=== PATIENT | male | born 1975 | race Two or more races ===

== ENCOUNTER 2021-04-08 08:32 | Emergency (ER) | payer OTHER ==
[~2021-04-08] VITALS: Ht 182.9 cm; Wt 108.9 kg
[2021-04-08 08:58] VITALS: BP 131/77
[2021-04-08] MEDS ORDERED: cefTRIAXone SOD 1,000 MG VL IM ONE (09:15)
[2021-04-08] MEDS ORDERED: KETOROLAC TROMETH 60MG/2ML VIAL IM ONE (09:15)
== END 2021-04-08 09:34 | disposition home or self-care (01) ==
LOC: ER 08:32
DX: S50.862A Insect bite (nonvenomous) of left forearm, initial encounter (principal); S50.861A Insect bite (nonvenomous) of right forearm, initial encounter; S80.862A Insect bite (nonvenomous), left lower leg, initial encounter; S80.861A Insect bite (nonvenomous), right lower leg, initial encounter; F41.1 Generalized anxiety disorder; F17.210 Nicotine dependence, cigarettes, uncomplicated; W57.XXXA Bitten or stung by nonvenomous insect and other nonvenomous arthropods, initial encounter; Y93.89 Activity, other specified; Y92.89 Other specified places as the place of occurrence of the external cause; Y99.8 Other external cause status
CPT/HCPCS: 96372; 99284; J0696; J1885

== ENCOUNTER 2021-04-09 10:53 | Emergency (ER) | payer OTHER ==
[~2021-04-09] VITALS: Ht 185.4 cm; Wt 136.1 kg
[2021-04-09 11:41] LABS: Basophils # (auto) 0.1 10 ^3/uL (0-0.2); Basophils % (auto) 0.8 % (0.0-2.0); Eosinophils # (auto) 0.2 10 ^3/uL (0-0.8); Hematocrit 40.3 % (41.0-53.0); Hemoglobin 13.4 g/dL (13.5-17.5); Lymphocytes # (auto) 1.7 10 ^3/uL (0.4-5.4); Lymphocytes % (auto) 16.8 % (10.0-50.0); Mean Corpuscular Hemoglobin 28.7 pg (28.0-32.0); Mean Corpuscular Hgb Conc. 33.2 g/dL (32.0-36.0); Mean Corpuscular Volume 86.5 fL (80.0-100.0); Monocytes # (auto) 0.5 10 ^3/uL (0-1.3); Monocytes % (auto) 5.4 % (0.0-12.0); Neutrophils # (auto) 7.6 10 ^3/uL (1.6-8.6); Nucleated Red Blood Cells % 0.1 %; Red Blood Cells 4.66 10^6/uL (4.5-5.90); Red Cell Distribution Width 15.5 % (11.8-14.3); White Blood Cell 10.2 10^3/uL (4.4-10.8)
[2021-04-09 11:55] LABS: Albumin 2.8 g/dL (3.4-5.0); Calcium 8.3 mg/dL (8.5-10.1); Magnesium 2.5 mg/dL (1.6-2.6)
[2021-04-09 11:59] LABS: BUN/Creatinine Ratio 13.9; Bilirubin, Total 0.4 mg/dL (0.2-1.0); Total Protein 7.8 g/dL (6.4-8.2)
[2021-04-09] MEDS ORDERED: TETANUS-DIPTH-ACEL PERTUSSIS 0.5ML SYR Tdap IM ONE (12:00)
[2021-04-09] MEDS ORDERED: cefTRIAXone 1GM/50ML D5W 50 ML IV ONE (12:30)
[2021-04-09] MEDS ORDERED: SODIUM CHLORIDE 0.9% 1,000 ML IV ONE (13:00)
[2021-04-09 14:08] LABS: Urine Bacteria FEW /hpf (None Seen); Urine Blood Negative /uL (Negative); Urine Specific Gravity 1.009 (1.001-1.035); Urine WBC 25 /hpf (0 - 3)
[2021-04-09 14:28] LABS: Alcohol, Urine < 3.0 mg/dL (0-10); Amphetamine Screen, Urine POSITIVE (NEGATIVE); Barbiturate Scree,Urine NEGATIVE (NEGATIVE); Benzodiazephine Screen, Urine NEGATIVE (NEGATIVE); Cocaine Screen, Urine NEGATIVE (NEGATIVE); Opiate Scree,Urine NEGATIVE (NEGATIVE); Phencyclidine Screen, Urine NEGATIVE (NEGATIVE)
[2021-04-09 14:32] LABS: Cannabinoid Screen, Urine NEGATIVE (NEGATIVE)
[2021-04-09 15:40] VITALS: BP 141/87
== END 2021-04-09 16:08 | disposition home or self-care (01) ==
LOC: ER 10:53
DX: S81.802A Unspecified open wound, left lower leg, initial encounter (principal); N18.31 Chronic kidney disease, stage 3a; F15.10 Other stimulant abuse, uncomplicated; F17.210 Nicotine dependence, cigarettes, uncomplicated; E44.0 Moderate protein-calorie malnutrition; Z68.39 Body mass index [BMI] 39.0-39.9, adult; Z59.0 Homelessness; X58.XXXA Exposure to other specified factors, initial encounter; Y93.89 Activity, other specified; Y92.89 Other specified places as the place of occurrence of the external cause; Y99.8 Other external cause status
CPT/HCPCS: 36415; 71045; 80053; 80307; 81001; 83735; 85025; 87205; 90471; 90715; 93005; 96365; 99285; J0696; J7030; 87077

== ENCOUNTER 2021-06-15 10:52 | Emergency (ER) | payer OTHER ==
[~2021-06-15] VITALS: Ht 175.3 cm; Wt 117.9 kg
[2021-06-15 12:15] VITALS: BP 145/79
[2021-06-15] MEDS ORDERED: SODIUM CHLORIDE 0.9% 1,000 ML IV ONE (12:15)
[2021-06-15 12:40] LABS: Urine Bacteria NONE SEEN /hpf (None Seen); Urine Blood Negative /uL (Negative); Urine Mucus FEW (None Seen); Urine Specific Gravity 1.033 (1.001-1.035); Urine WBC 3 /hpf (0 - 3)
[2021-06-15 12:58] LABS: Alcohol, Urine < 3.0 mg/dL (0-10); Amphetamine Screen, Urine POSITIVE (NEGATIVE); Barbiturate Scree,Urine NEGATIVE (NEGATIVE); Benzodiazephine Screen, Urine NEGATIVE (NEGATIVE); Cannabinoid Screen, Urine POSITIVE (NEGATIVE); Cocaine Screen, Urine NEGATIVE (NEGATIVE); Opiate Scree,Urine NEGATIVE (NEGATIVE); Phencyclidine Screen, Urine NEGATIVE (NEGATIVE)
[2021-06-15 13:14] LABS: Basophils # (auto) 0 10 ^3/uL (0-0.2); Basophils % (auto) 0.3 % (0.0-2.0); Eosinophils # (auto) 0.1 10 ^3/uL (0-0.8); Eosinophils % (auto) 1.4 % (0.0-7.0); Hematocrit 36.8 % (41.0-53.0); Hemoglobin 12.3 g/dL (13.5-17.5); Lymphocytes # (auto) 1.4 10 ^3/uL (0.4-5.4); Lymphocytes % (auto) 14.7 % (10.0-50.0); Mean Corpuscular Hemoglobin 29.5 pg (28.0-32.0); Mean Corpuscular Hgb Conc. 33.6 g/dL (32.0-36.0); Mean Corpuscular Volume 87.8 fL (80.0-100.0); Monocytes # (auto) 0.5 10 ^3/uL (0-1.3); Monocytes % (auto) 5.7 % (0.0-12.0); Neutrophils # (auto) 7.4 10 ^3/uL (1.6-8.6); Neutrophils % (auto) 77.9 % (37.0-80.0); Nucleated Red Blood Cells % 0.1 %; Red Blood Cells 4.19 10^6/uL (4.5-5.90); Red Cell Distribution Width 14.9 % (11.8-14.3); White Blood Cell 9.5 10^3/uL (4.4-10.8)
[2021-06-15 13:30] LABS: Anion Gap 9 (5-15); BUN/Creatinine Ratio 18.8; Blood Alcohol < 3.0 mg/dL (0-5); Blood Urea Nitrogen 24 mg/dL (7-18); Calcium 8.5 mg/dL (8.5-10.1); Carbon Dioxide 23 mmol/L (21-32); Chloride 108 mmol/L (98-107); GFR African American 78 mL/min; GFR Non-African American 64 mL/min; Glucose 76 mg/dL (74-106); Magnesium 2.7 mg/dL (1.6-2.6); Potassium 3.3 mmol/L (3.5-5.1); Sodium 140 mmol/L (136-145)
[2021-06-15] MEDS ORDERED: DOXYCYCLINE 100 MG TAB/CAP PO ONE (14:15)
== END 2021-06-15 15:37 | disposition home or self-care (01) ==
LOC: ER 10:52 → EDBD 10:52 → ER 15:37
DX: F15.10 Other stimulant abuse, uncomplicated (principal); R21 Rash and other nonspecific skin eruption; K62.89 Other specified diseases of anus and rectum; Z59.0 Homelessness
CPT/HCPCS: 36415; 80048; 80307; 80320; 81001; 83605; 83735; 85025

== ENCOUNTER 2021-06-16 17:08 | Inpatient (IN) | payer OTHER ==
[~2021-06-16] VITALS: Ht 182.9 cm; Wt 109.4 kg
[2021-06-16 17:46] LABS: Basophils # (auto) 0 10 ^3/uL (0-0.2); Basophils % (auto) 0.3 % (0.0-2.0); Eosinophils # (auto) 0 10 ^3/uL (0-0.8); Eosinophils % (auto) 0.1 % (0.0-7.0); Hematocrit 32.2 % (41.0-53.0); Hemoglobin 10.7 g/dL (13.5-17.5); Lymphocytes # (auto) 0.8 10 ^3/uL (0.4-5.4); Lymphocytes % (auto) 7.9 % (10.0-50.0); Mean Corpuscular Hemoglobin 28.7 pg (28.0-32.0); Mean Corpuscular Hgb Conc. 33.2 g/dL (32.0-36.0); Mean Corpuscular Volume 86.5 fL (80.0-100.0); Monocytes # (auto) 0.5 10 ^3/uL (0-1.3); Monocytes % (auto) 5.4 % (0.0-12.0); Neutrophils # (auto) 8.2 10 ^3/uL (1.6-8.6); Neutrophils % (auto) 86.3 % (37.0-80.0); Red Blood Cells 3.72 10^6/uL (4.5-5.90); Red Cell Distribution Width 14.9 % (11.8-14.3); White Blood Cell 9.5 10^3/uL (4.4-10.8)
[2021-06-16 17:53] LABS: Albumin 2.4 g/dL (3.4-5.0); Anion Gap 7 (5-15); Blood Alcohol < 3.0 mg/dL (0-5); Blood Urea Nitrogen 24 mg/dL (7-18); Carbon Dioxide 22 mmol/L (21-32); Chloride 115 mmol/L (98-107); Glucose 114 mg/dL (74-106); Potassium 3.7 mmol/L (3.5-5.1); Sodium 144 mmol/L (136-145)
[2021-06-16 17:57] LABS: Alanine Aminotransferase 20 U/L (16-61); Alkaline Phosphatase 63 U/L (45-117); Aspartate Aminotransferase 16 U/L (15-37); BUN/Creatinine Ratio 20.2; Bilirubin, Total 0.4 mg/dL (0.2-1.0); GFR African American 85 mL/min; GFR Non-African American 70 mL/min
[2021-06-17] MEDS ORDERED: MORPHINE SULFATE INJECTION 2 MG/ML SYRG IV PRN
[2021-06-17] MEDS ORDERED: hydrALAZINE HCL 20 MG/ML VL IV PRN
[2021-06-17] MEDS ORDERED: MORPHINE SULFATE 4 MG/ML SYR/VIAL IV PRN
[2021-06-17] MEDS ORDERED: ONDANSETRON HCL 4 MG/2 ML VIAL IV PRN
[2021-06-17] MEDS ORDERED: NITROGLYCERIN 0.4 MG SL TAB SL PRN
[2021-06-17] MEDS ORDERED: DOCUSATE SOD 100 MG CAP PO PRN
[2021-06-17] MEDS ORDERED: SOD CHL 0.45% 1,000 ML IV ONE
[2021-06-17 05:45] VITALS: BP 150/82
[2021-06-17 06:27] LABS: Basophils # (auto) 0.1 10 ^3/uL (0-0.2); Basophils % (auto) 0.9 % (0.0-2.0); Eosinophils # (auto) 0.2 10 ^3/uL (0-0.8); Eosinophils % (auto) 2.3 % (0.0-7.0); Hematocrit 37.3 % (41.0-53.0); Hemoglobin 12.4 g/dL (13.5-17.5); Lymphocytes # (auto) 0.7 10 ^3/uL (0.4-5.4); Mean Corpuscular Hemoglobin 30.4 pg (28.0-32.0); Mean Corpuscular Hgb Conc. 33.3 g/dL (32.0-36.0); Mean Corpuscular Volume 91.3 fL (80.0-100.0); Monocytes # (auto) 0.6 10 ^3/uL (0-1.3); Monocytes % (auto) 6.3 % (0.0-12.0); Neutrophils # (auto) 7.5 10 ^3/uL (1.6-8.6); Neutrophils % (auto) 82.5 % (37.0-80.0); Nucleated Red Blood Cells % 0.2 %; Red Blood Cells 4.09 10^6/uL (4.5-5.90); Red Cell Distribution Width 15.5 % (11.8-14.3); White Blood Cell 9.1 10^3/uL (4.4-10.8)
[2021-06-17 07:55] LABS: Albumin 2.2 g/dL (3.4-5.0); Anion Gap 8 (5-15); Blood Urea Nitrogen 22 mg/dL (7-18); Carbon Dioxide 18 mmol/L (21-32); Chloride 115 mmol/L (98-107); Glucose 90 mg/dL (74-106); Sodium 141 mmol/L (136-145)
[2021-06-17 08:00] LABS: Alanine Aminotransferase 26 U/L (16-61); Alkaline Phosphatase 72 U/L (45-117); Aspartate Aminotransferase 89 U/L (15-37); BUN/Creatinine Ratio 23.4; Bilirubin, Total 0.6 mg/dL (0.2-1.0); GFR African American 111 mL/min; GFR Non-African American 92 mL/min; Total Protein 6.8 g/dL (6.4-8.2)
[2021-06-17 08:57] LABS: Potassium 5.6 mmol/L (3.5-5.1)
[2021-06-17] MEDS: MULTIPLE VITAMIN TAB PO SCH (10:00)
[2021-06-17] MEDS ORDERED: ASCORBIC ACID 500 MG TAB PO SCH (10:00)
[2021-06-17] MEDS ORDERED: ZINC SULFATE 220mg CAP or TAB PO SCH (10:00)
[2021-06-17] MEDS: FAMOTIDINE (10MG/ML) 2ML VL IV SCH ×2 (10:42→22:04)
[2021-06-17 10:45] VITALS: BP 150/78
[2021-06-17] MEDS ORDERED: LORazepam 2MG/ML-1ML VIAL IV ONE (12:00)
[2021-06-17 13:00] VITALS: BP 176/91
[2021-06-17] MEDS: SODIUM CHLORIDE 0.9% 1,000 ML IV SCH ×2 (13:50→18:25)
[2021-06-17] MEDS: FOLIC ACID 1 MG, MULTIPLE VITAMIN 10 ML, THIAMINE INJ 100 MG in D5W 5% 1,000 ML INJ SCH (13:54)
[2021-06-17] MEDS: HYDROcodone-ACET 5/325MG TAB PO PRN ×2 (14:18→20:58)
[2021-06-17 14:50] LABS: Alcohol, Urine < 3.0 mg/dL (0-10); Amphetamine Screen, Urine POSITIVE (NEGATIVE); Barbiturate Scree,Urine NEGATIVE (NEGATIVE); Benzodiazephine Screen, Urine NEGATIVE (NEGATIVE); Cocaine Screen, Urine NEGATIVE (NEGATIVE); Phencyclidine Screen, Urine NEGATIVE (NEGATIVE)
[2021-06-17 14:58] LABS: Cannabinoid Screen, Urine POSITIVE (NEGATIVE); Opiate Scree,Urine NEGATIVE (NEGATIVE)
[2021-06-17 17:00] VITALS: BP 139/85
[2021-06-17 22:17] VITALS: BP 164/93
[2021-06-18] MEDS: SODIUM CHLORIDE 0.9% 1,000 ML IV SCH ×2 (01:05→07:45)
[2021-06-18 05:37] VITALS: BP 175/70
[2021-06-18 07:51] LABS: Calcium 7.9 mg/dL (8.5-10.1); Magnesium 2.1 mg/dL (1.6-2.6); Potassium 3.7 mmol/L (3.5-5.1)
[2021-06-18 07:53] LABS: BUN/Creatinine Ratio 25.3
[2021-06-18 10:32] VITALS: BP 149/74
[2021-06-18] MEDS: HYDROcodone-ACET 5/325MG TAB PO PRN (10:33)
[2021-06-18] MEDS: MULTIPLE VITAMIN TAB PO SCH (10:33)
[2021-06-18] MEDS: FAMOTIDINE (10MG/ML) 2ML VL IV SCH (10:33)
[2021-06-18] MEDS: FOLIC ACID 1 MG, MULTIPLE VITAMIN 10 ML, THIAMINE INJ 100 MG in D5W 5% 1,000 ML INJ SCH (12:00)
[2021-06-18 13:28] VITALS: BP 149/74
== END 2021-06-18 14:44 | disposition home or self-care (01) | DRG 812 ==
LOC: EDUNIT# 17:08 → EDBD 17:08 → ER 17:10 → OVERFLOW 23:59 → WEST WING 06-17 05:42
PROVIDERS: ADMIT Nurse Practitioner Family; ATTEND Family Medicine
DX: T43.621A Poisoning by amphetamines, accidental (unintentional), initial encounter (principal); G92 Toxic encephalopathy; E88.09 Other disorders of plasma-protein metabolism, not elsewhere classified; F15.10 Other stimulant abuse, uncomplicated; E66.01 Morbid (severe) obesity due to excess calories; E87.5 Hyperkalemia; Z20.822 Contact with and (suspected) exposure to COVID-19; F12.10 Cannabis abuse, uncomplicated; Z59.0 Homelessness; Z68.32 Body mass index [BMI] 32.0-32.9, adult
CPT/HCPCS: 36415; 70450; 80048; 80053; 80307; 80320; 83735; 85025; 87426; 93005; 96360; 99291; G0378; J3490

== ENCOUNTER 2021-06-23 11:11 | Inpatient (IN) | payer OTHER ==
[~2021-06-23] VITALS: Ht 177.8 cm; Wt 113.0 kg
[2021-06-23 11:49] LABS: Basophils # (auto) 0 10 ^3/uL (0-0.2); Basophils % (auto) 0.3 % (0.0-2.0); Eosinophils # (auto) 0.1 10 ^3/uL (0-0.8); Eosinophils % (auto) 0.6 % (0.0-7.0); Hematocrit 36.1 % (41.0-53.0); Lymphocytes # (auto) 0.8 10 ^3/uL (0.4-5.4); Lymphocytes % (auto) 8.3 % (10.0-50.0); Mean Corpuscular Hemoglobin 28.6 pg (28.0-32.0); Mean Corpuscular Hgb Conc. 33.3 g/dL (32.0-36.0); Monocytes # (auto) 0.6 10 ^3/uL (0-1.3); Monocytes % (auto) 5.8 % (0.0-12.0); Neutrophils # (auto) 8.1 10 ^3/uL (1.6-8.6); Red Cell Distribution Width 15.2 % (11.8-14.3); White Blood Cell 9.6 10^3/uL (4.4-10.8)
[2021-06-23 12:02] LABS: Albumin 1.8 g/dL (3.4-5.0); Calcium 8.6 mg/dL (8.5-10.1); Potassium 3.5 mmol/L (3.5-5.1)
[2021-06-23 12:09] LABS: BUN/Creatinine Ratio 21.3; Total Protein 6.7 g/dL (6.4-8.2)
[2021-06-23] MEDS ORDERED: ONDANSETRON HCL 4 MG/2 ML VIAL IV ONE (13:30)
[2021-06-23] MEDS ORDERED: MORPHINE SULFATE 4 MG/ML SYR/VIAL IV ONE (13:30)
[2021-06-23] MEDS ORDERED: ONDANSETRON HCL 4 MG/2 ML VIAL IV PRN (15:15)
[2021-06-23] MEDS ORDERED: hydrALAZINE HCL 20 MG/ML VL IV PRN (15:15)
[2021-06-23] MEDS ORDERED: TETANUS-DIPTH-ACEL PERTUSSIS 0.5ML SYR Tdap IM ONE (15:15)
[2021-06-23] MEDS ORDERED: SODIUM CHLORIDE 0.9% 1,000 ML IV ONE (15:15)
[2021-06-23] MEDS ORDERED: DOCUSATE CALCIUM 240 MG CAP PO PRN (15:15)
[2021-06-23] MEDS ORDERED: VANCOMYCIN PER PHARMACY 0 MG IV SCH (15:30)
[2021-06-23] MEDS: VANCOMYCIN 750mg/250ml 250 ML IV SCH (17:18)
[2021-06-23] MEDS: MORPHINE SULFATE 4 MG/ML SYR/VIAL IV PRN (20:31)
[2021-06-23 22:00] VITALS: BP 127/70
[2021-06-23] MEDS: PIPERACILLIN-TAZO 4.5GM 100 ML IV SCH (22:16)
[2021-06-23 22:53] LABS: Urine Bacteria NONE SEEN /hpf (None Seen); Urine Blood TRACE /uL (Negative); Urine Specific Gravity 1.017 (1.001-1.035); Urine WBC 3 /hpf (0 - 3)
[2021-06-23 23:08] LABS: Alcohol, Urine < 3.0 mg/dL (0-10); Amphetamine Screen, Urine NEGATIVE (NEGATIVE); Barbiturate Scree,Urine NEGATIVE (NEGATIVE); Benzodiazephine Screen, Urine NEGATIVE (NEGATIVE); Cannabinoid Screen, Urine NEGATIVE (NEGATIVE); Cocaine Screen, Urine NEGATIVE (NEGATIVE); Opiate Scree,Urine POSITIVE (NEGATIVE); Phencyclidine Screen, Urine NEGATIVE (NEGATIVE)
[2021-06-24] VITALS (7 sets, daily range): BP systolic 109–137; BP diastolic 57–75
[2021-06-24 06:09] LABS: Basophils # (auto) 0 10 ^3/uL (0-0.2); Basophils % (auto) 0.2 % (0.0-2.0); Eosinophils # (auto) 0.1 10 ^3/uL (0-0.8); Eosinophils % (auto) 1.4 % (0.0-7.0); Hematocrit 33.3 % (41.0-53.0); Hemoglobin 11.2 g/dL (13.5-17.5); Lymphocytes # (auto) 1.1 10 ^3/uL (0.4-5.4); Lymphocytes % (auto) 10.8 % (10.0-50.0); Mean Corpuscular Hemoglobin 28.8 pg (28.0-32.0); Mean Corpuscular Hgb Conc. 33.6 g/dL (32.0-36.0); Mean Corpuscular Volume 85.9 fL (80.0-100.0); Monocytes # (auto) 0.8 10 ^3/uL (0-1.3); Monocytes % (auto) 7.5 % (0.0-12.0); Neutrophils # (auto) 8.2 10 ^3/uL (1.6-8.6); Neutrophils % (auto) 80.1 % (37.0-80.0); Red Blood Cells 3.88 10^6/uL (4.5-5.90); White Blood Cell 10.3 10^3/uL (4.4-10.8)
[2021-06-24] MEDS: PIPERACILLIN-TAZO 4.5GM 100 ML IV SCH ×3 (06:22→22:55)
[2021-06-24] MEDS: MORPHINE SULFATE 4 MG/ML SYR/VIAL IV PRN ×5 (06:23→23:56)
[2021-06-24] MEDS: PANTOPRAZOLE 40 MG TAB PO SCH (09:30)
[2021-06-24] MEDS: ENOXAPARIN SOD 40 MG/0.4 ML SYRINGE SC SCH (09:30)
[2021-06-24] MEDS: VANCOMYCIN 750mg/250ml 250 ML IV SCH (19:42)
[2021-06-25] MEDS: MORPHINE SULFATE 4 MG/ML SYR/VIAL IV PRN ×5 (03:13→22:32)
[2021-06-25 04:50] LABS: Basophils # (auto) 0 10 ^3/uL (0-0.2); Basophils % (auto) 0.4 % (0.0-2.0); Eosinophils # (auto) 0.4 10 ^3/uL (0-0.8); Eosinophils % (auto) 5.3 % (0.0-7.0); Hemoglobin 10.7 g/dL (13.5-17.5); Lymphocytes # (auto) 1.2 10 ^3/uL (0.4-5.4); Mean Corpuscular Hemoglobin 29.4 pg (28.0-32.0); Mean Corpuscular Hgb Conc. 34.7 g/dL (32.0-36.0); Mean Corpuscular Volume 84.7 fL (80.0-100.0); Monocytes # (auto) 0.5 10 ^3/uL (0-1.3); Monocytes % (auto) 6.5 % (0.0-12.0); Neutrophils # (auto) 5.8 10 ^3/uL (1.6-8.6); Neutrophils % (auto) 72.8 % (37.0-80.0); Red Blood Cells 3.66 10^6/uL (4.5-5.90); Red Cell Distribution Width 15.1 % (11.8-14.3)
[2021-06-25 05:21] VITALS: BP 118/56
[2021-06-25] MEDS: PIPERACILLIN-TAZO 4.5GM 100 ML IV SCH ×3 (06:14→22:27)
[2021-06-25 09:00] VITALS: BP 122/57
[2021-06-25] MEDS: PANTOPRAZOLE 40 MG TAB PO SCH (09:16)
[2021-06-25] MEDS: ENOXAPARIN SOD 40 MG/0.4 ML SYRINGE SC SCH (09:16)
[2021-06-25 13:00] VITALS: BP 118/63
[2021-06-25 16:51] VITALS: BP 128/61
[2021-06-25] MEDS: VANCOMYCIN 750mg/250ml 250 ML IV SCH (18:27)
[2021-06-25 22:00] VITALS: BP 130/65
[2021-06-26] MEDS: MORPHINE SULFATE 4 MG/ML SYR/VIAL IV PRN ×5 (01:43→20:56)
[2021-06-26 05:00] VITALS: BP 131/67
[2021-06-26] MEDS: PIPERACILLIN-TAZO 4.5GM 100 ML IV SCH ×3 (05:57→22:48)
[2021-06-26 08:15] VITALS: BP 140/73
[2021-06-26 09:00] VITALS: BP 140/73
[2021-06-26] MEDS: ENOXAPARIN SOD 40 MG/0.4 ML SYRINGE SC SCH (10:03)
[2021-06-26] MEDS: PANTOPRAZOLE 40 MG TAB PO SCH (10:03)
[2021-06-26 11:20] LABS: Basophils # (auto) 0 10 ^3/uL (0-0.2); Basophils % (auto) 0.5 % (0.0-2.0); Eosinophils # (auto) 0.8 10 ^3/uL (0-0.8); Eosinophils % (auto) 10.8 % (0.0-7.0); Hemoglobin 10.4 g/dL (13.5-17.5); Lymphocytes % (auto) 14.9 % (10.0-50.0); Mean Corpuscular Hemoglobin 27.9 pg (28.0-32.0); Mean Corpuscular Hgb Conc. 32.6 g/dL (32.0-36.0); Mean Corpuscular Volume 85.8 fL (80.0-100.0); Monocytes # (auto) 0.5 10 ^3/uL (0-1.3); Monocytes % (auto) 7.5 % (0.0-12.0); Neutrophils # (auto) 4.7 10 ^3/uL (1.6-8.6); Neutrophils % (auto) 66.3 % (37.0-80.0); Red Blood Cells 3.74 10^6/uL (4.5-5.90); Red Cell Distribution Width 15.3 % (11.8-14.3)
[2021-06-26 13:00] VITALS: BP 119/70
[2021-06-26 17:00] VITALS: BP 119/68
[2021-06-26] MEDS: VANCOMYCIN 750mg/250ml 250 ML IV SCH (17:17)
[2021-06-26] MEDS ORDERED: FAMOTIDINE (10MG/ML) 2ML VL IV ONE (18:00)
[2021-06-26] MEDS: diphenhdrAMINE HCL 50 MG/1 ML VL IV PRN (18:21)
[2021-06-27] MEDS: MORPHINE SULFATE 4 MG/ML SYR/VIAL IV PRN ×6 (00:16→23:47)
[2021-06-27] MEDS: diphenhdrAMINE HCL 50 MG/1 ML VL IV PRN ×2 (03:08→23:48)
[2021-06-27 05:00] VITALS: BP 140/84
[2021-06-27] MEDS: PIPERACILLIN-TAZO 4.5GM 100 ML IV SCH ×3 (06:23→22:23)
[2021-06-27 09:19] VITALS: BP 118/69
[2021-06-27] MEDS: PANTOPRAZOLE 40 MG TAB PO SCH (11:59)
[2021-06-27] MEDS: ENOXAPARIN SOD 40 MG/0.4 ML SYRINGE SC SCH (12:01)
[2021-06-27] MEDS ORDERED: VANCOMYCIN 1GM/250ML 250 ML IV ONE ×2 (12:30→18:00)
[2021-06-27 12:35] VITALS: BP 127/69
[2021-06-27 12:57] LABS: Hepatitis B Surface Antigen Negative (Negative)
[2021-06-27 13:16] LABS: Hepatitis B Surface Antibody Negative
[2021-06-27 16:42] VITALS: BP 133/68
[2021-06-27 22:00] VITALS: BP 133/72
[2021-06-28] MEDS: LORazepam 0.5 MG TAB PO PRN ×2 (01:14→22:10)
[2021-06-28] MEDS: MORPHINE SULFATE 4 MG/ML SYR/VIAL IV PRN ×4 (04:12→20:49)
[2021-06-28 05:00] VITALS: BP 120/66
[2021-06-28] MEDS: PIPERACILLIN-TAZO 4.5GM 100 ML IV SCH ×3 (06:23→22:10)
[2021-06-28] MEDS ORDERED: VANCOMYCIN 1GM/250ML 250 ML IV SCH ×3 (08:00→22:00)
[2021-06-28] MEDS: ENOXAPARIN SOD 40 MG/0.4 ML SYRINGE SC SCH (08:24)
[2021-06-28 09:00] VITALS: BP 113/72
[2021-06-28 13:00] VITALS: BP 121/66
[2021-06-28 17:00] VITALS: BP 138/67
[2021-06-28] MEDS: VANCOMYCIN 1GM/250ML 250 ML IV SCH (20:50)
[2021-06-28 22:00] VITALS: BP 131/70
[2021-06-28] MEDS: diphenhdrAMINE HCL 50 MG/1 ML VL IV PRN (23:42)
[2021-06-29] MEDS: MORPHINE SULFATE 4 MG/ML SYR/VIAL IV PRN ×7 (00:44→21:23)
[2021-06-29 05:00] VITALS: BP 154/90
[2021-06-29] MEDS: PIPERACILLIN-TAZO 4.5GM 100 ML IV SCH ×3 (05:08→22:16)
[2021-06-29 06:07] VITALS: BP 129/74
[2021-06-29] MEDS: ENOXAPARIN SOD 40 MG/0.4 ML SYRINGE SC SCH (08:13)
[2021-06-29 09:06] VITALS: BP 140/78
[2021-06-29] MEDS: VANCOMYCIN 1GM/250ML 250 ML IV SCH ×2 (09:44→20:00)
[2021-06-29 14:00] VITALS: BP 142/74
[2021-06-29 16:27] VITALS: BP 146/74
[2021-06-29] MEDS: diphenhdrAMINE HCL 50 MG/1 ML VL IV PRN (18:11)
[2021-06-29 22:26] VITALS: BP 140/61
[2021-06-30] MEDS: MORPHINE SULFATE 4 MG/ML SYR/VIAL IV PRN ×7 (00:24→21:22)
[2021-06-30 05:30] VITALS: BP 122/80
[2021-06-30] MEDS: PIPERACILLIN-TAZO 4.5GM 100 ML IV SCH ×3 (07:46→21:22)
[2021-06-30 08:48] VITALS: BP 133/64
[2021-06-30] MEDS: VANCOMYCIN 1GM/250ML 250 ML IV SCH ×2 (09:48→18:39)
[2021-06-30] MEDS: ENOXAPARIN SOD 40 MG/0.4 ML SYRINGE SC SCH (09:48)
[2021-06-30 13:00] VITALS: BP 130/68
[2021-06-30] MEDS: diphenhdrAMINE HCL 50 MG/1 ML VL IV PRN (21:34)
[2021-06-30] MEDS: LORazepam 0.5 MG TAB PO PRN (21:34)
[2021-07-01 00:09] VITALS: BP 129/68
[2021-07-01] MEDS: VANCOMYCIN 1GM/250ML 250 ML IV SCH ×3 (01:44→20:55)
[2021-07-01] MEDS: MORPHINE SULFATE 4 MG/ML SYR/VIAL IV PRN ×6 (02:02→22:04)
[2021-07-01 05:00] VITALS: BP 119/65
[2021-07-01] MEDS: PIPERACILLIN-TAZO 4.5GM 100 ML IV SCH ×3 (05:20→22:04)
[2021-07-01 09:00] VITALS: BP 113/63
[2021-07-01] MEDS: ENOXAPARIN SOD 40 MG/0.4 ML SYRINGE SC SCH (09:17)
[2021-07-01 13:00] VITALS: BP 121/65
[2021-07-01] MEDS: ACETAMINOPHEN 500 MG TAB PO PRN (15:44)
[2021-07-01] MEDS: diphenhdrAMINE HCL 50 MG/1 ML VL IV PRN ×2 (15:45→21:03)
[2021-07-01 17:00] VITALS: BP 129/61
[2021-07-01] MEDS: LORazepam 0.5 MG TAB PO PRN (21:03)
[2021-07-01 22:00] VITALS: BP 124/72
[2021-07-02] MEDS: MORPHINE SULFATE 4 MG/ML SYR/VIAL IV PRN ×6 (01:08→20:37)
[2021-07-02] MEDS: ACETAMINOPHEN 500 MG TAB PO PRN ×2 (03:41→14:54)
[2021-07-02] MEDS: diphenhdrAMINE HCL 50 MG/1 ML VL IV PRN ×2 (04:48→21:20)
[2021-07-02 05:00] VITALS: BP 125/75
[2021-07-02] MEDS: VANCOMYCIN 1GM/250ML 250 ML IV SCH ×2 (05:55→17:34)
[2021-07-02] MEDS: PIPERACILLIN-TAZO 4.5GM 100 ML IV SCH ×3 (06:55→22:10)
[2021-07-02 09:00] VITALS: BP 119/59
[2021-07-02] MEDS: ENOXAPARIN SOD 40 MG/0.4 ML SYRINGE SC SCH (09:25)
[2021-07-02 13:00] VITALS: BP 127/59
[2021-07-02 17:00] VITALS: BP 125/70
[2021-07-02] MEDS: LORazepam 0.5 MG TAB PO PRN (21:21)
[2021-07-02 22:00] VITALS: BP 134/78
[2021-07-03] MEDS: MORPHINE SULFATE 4 MG/ML SYR/VIAL IV PRN ×7 (01:07→20:49)
[2021-07-03] MEDS: ACETAMINOPHEN 500 MG TAB PO PRN (02:52)
[2021-07-03] MEDS: VANCOMYCIN 1GM/250ML 250 ML IV SCH ×2 (03:00→13:22)
[2021-07-03 05:00] VITALS: BP 121/57
[2021-07-03] MEDS: PIPERACILLIN-TAZO 4.5GM 100 ML IV SCH ×3 (06:15→21:09)
[2021-07-03 09:00] VITALS: BP 97/62
[2021-07-03] MEDS: ENOXAPARIN SOD 40 MG/0.4 ML SYRINGE SC SCH (09:15)
[2021-07-03 13:00] VITALS: BP 102/67
[2021-07-03] MEDS: diphenhdrAMINE HCL 50 MG/1 ML VL IV PRN (16:16)
[2021-07-03 17:00] VITALS: BP 133/75
[2021-07-03 22:00] VITALS: BP 122/69
[2021-07-03] MEDS: LORazepam 0.5 MG TAB PO PRN (22:43)
[2021-07-04] MEDS: MORPHINE SULFATE 4 MG/ML SYR/VIAL IV PRN ×7 (00:11→23:47)
[2021-07-04] MEDS: VANCOMYCIN 1GM/250ML 250 ML IV SCH ×3 (00:15→18:43)
[2021-07-04 05:00] VITALS: BP 131/78
[2021-07-04] MEDS: PIPERACILLIN-TAZO 4.5GM 100 ML IV SCH ×3 (05:40→21:26)
[2021-07-04] MEDS: ENOXAPARIN SOD 40 MG/0.4 ML SYRINGE SC SCH (07:56)
[2021-07-04 08:00] VITALS: BP 118/77
[2021-07-04 13:00] VITALS: BP 120/62
[2021-07-04 17:08] VITALS: BP 125/85
[2021-07-04] MEDS: diphenhdrAMINE HCL 50 MG/1 ML VL IV PRN (21:26)
[2021-07-04 22:00] VITALS: BP 119/62
[2021-07-05] MEDS: MORPHINE SULFATE 4 MG/ML SYR/VIAL IV PRN ×6 (02:45→22:39)
[2021-07-05 05:00] VITALS: BP 126/78
[2021-07-05] MEDS: VANCOMYCIN 1GM/250ML 250 ML IV SCH ×2 (05:22→15:01)
[2021-07-05] MEDS: PIPERACILLIN-TAZO 4.5GM 100 ML IV SCH ×3 (06:48→21:28)
[2021-07-05 09:00] VITALS: BP 125/51
[2021-07-05] MEDS: ENOXAPARIN SOD 40 MG/0.4 ML SYRINGE SC SCH (10:00)
[2021-07-05 13:00] VITALS: BP 136/69
[2021-07-05 17:00] VITALS: BP 134/75
[2021-07-05] MEDS: diphenhdrAMINE HCL 50 MG/1 ML VL IV PRN (21:28)
[2021-07-05 22:00] VITALS: BP 132/79
[2021-07-05] MEDS: LORazepam 0.5 MG TAB PO PRN (23:33)
[2021-07-06] MEDS ORDERED: TEMAZEPAM 15 MG CAP PO ONE (01:15)
[2021-07-06] MEDS: VANCOMYCIN 1GM/250ML 250 ML IV SCH ×3 (01:28→20:49)
[2021-07-06] MEDS: MORPHINE SULFATE 4 MG/ML SYR/VIAL IV PRN ×7 (01:29→20:50)
[2021-07-06 05:30] VITALS: BP 128/76
[2021-07-06] MEDS: PIPERACILLIN-TAZO 4.5GM 100 ML IV SCH ×3 (06:00→22:10)
[2021-07-06 09:00] VITALS: BP 121/60
[2021-07-06 13:00] VITALS: BP 116/60
[2021-07-06 17:00] VITALS: BP 135/95
[2021-07-06 22:00] VITALS: BP 130/77
[2021-07-06] MEDS: diphenhdrAMINE HCL 50 MG/1 ML VL IV PRN (22:10)
[2021-07-06] MEDS: LORazepam 0.5 MG TAB PO PRN (22:10)
[2021-07-07] MEDS: MORPHINE SULFATE 4 MG/ML SYR/VIAL IV PRN ×8 (02:45→21:34)
[2021-07-07 05:00] VITALS: BP 103/61
[2021-07-07] MEDS: VANCOMYCIN 1GM/250ML 250 ML IV SCH ×2 (06:53→19:30)
[2021-07-07] MEDS: PIPERACILLIN-TAZO 4.5GM 100 ML IV SCH ×3 (08:16→22:00)
[2021-07-07 09:00] VITALS: BP 131/71
[2021-07-07 13:00] VITALS: BP 129/79
[2021-07-07 14:08] LABS: Basophils # (auto) 0 10 ^3/uL (0-0.2); Basophils % (auto) 0.7 % (0.0-2.0); Eosinophils # (auto) 0.3 10 ^3/uL (0-0.8); Eosinophils % (auto) 5.3 % (0.0-7.0); Hematocrit 37.7 % (41.0-53.0); Hemoglobin 12.3 g/dL (13.5-17.5); Lymphocytes # (auto) 0.7 10 ^3/uL (0.4-5.4); Lymphocytes % (auto) 12.7 % (10.0-50.0); Mean Corpuscular Hemoglobin 28.1 pg (28.0-32.0); Mean Corpuscular Hgb Conc. 32.7 g/dL (32.0-36.0); Monocytes # (auto) 0.5 10 ^3/uL (0-1.3); Monocytes % (auto) 9.1 % (0.0-12.0); Neutrophils # (auto) 4.1 10 ^3/uL (1.6-8.6); Neutrophils % (auto) 72.2 % (37.0-80.0); Nucleated Red Blood Cells % 0.1 %; Red Blood Cells 4.39 10^6/uL (4.5-5.90); Red Cell Distribution Width 15.9 % (11.8-14.3); White Blood Cell 5.6 10^3/uL (4.4-10.8)
[2021-07-07 14:27] LABS: Albumin 2.2 g/dL (3.4-5.0); BUN/Creatinine Ratio 18.6; Calcium 8.8 mg/dL (8.5-10.1)
[2021-07-07 14:30] LABS: Bilirubin, Total 0.3 mg/dL (0.2-1.0); Total Protein 6.9 g/dL (6.4-8.2)
[2021-07-07 17:00] VITALS: BP 135/74
[2021-07-07 22:00] VITALS: BP 113/70
[2021-07-08] MEDS: MORPHINE SULFATE 4 MG/ML SYR/VIAL IV PRN ×5 (00:30→13:44)
[2021-07-08] MEDS: diphenhdrAMINE HCL 50 MG/1 ML VL IV PRN (01:16)
[2021-07-08] MEDS: LORazepam 0.5 MG TAB PO PRN (02:02)
[2021-07-08 05:21] VITALS: BP 138/81
[2021-07-08] MEDS: VANCOMYCIN 1GM/250ML 250 ML IV SCH ×2 (05:30→15:05)
[2021-07-08] MEDS: PIPERACILLIN-TAZO 4.5GM 100 ML IV SCH (06:23)
[2021-07-08 08:54] VITALS: BP 123/69
[2021-07-08] MEDS ORDERED: PIPERACILLIN-TAZO 4.5GM 100 ML IV SCH (16:30)
== END 2021-07-08 15:25 | disposition left against medical advice (07) | DRG 344 ==
LOC: EDBD 11:11 → EDUNIT# 11:11 → ER 11:11 → OVERFLOW 15:10 → WEST WING 17:45
PROVIDERS: ADMIT Family Medicine; ATTEND Family Medicine
DX: M72.6 Necrotizing fasciitis (principal); L89.300 Pressure ulcer of unspecified buttock, unstageable; E44.0 Moderate protein-calorie malnutrition; L89.159 Pressure ulcer of sacral region, unspecified stage; E87.1 Hypo-osmolality and hyponatremia; N18.31 Chronic kidney disease, stage 3a; D64.9 Anemia, unspecified; F15.10 Other stimulant abuse, uncomplicated; F12.10 Cannabis abuse, uncomplicated; I12.9 Hypertensive chronic kidney disease with stage 1 through stage 4 chronic kidney disease, or unspecified chronic kidney disease; F41.9 Anxiety disorder, unspecified; Z20.822 Contact with and (suspected) exposure to COVID-19; Z68.35 Body mass index [BMI] 35.0-35.9, adult
CPT/HCPCS: 36415; 74176; 80053; 80202; 80307; 81001; 82565; 83605; 85025; 86703; 86706; 86803; 87040; 87077; 87081; 87186; 87205; 87340; 87426; 90471; 90715; 96361; 96365; 96375; G0378; J2405; J2543; J3490; J7042

== ENCOUNTER 2021-07-08 18:17 | Emergency (ER) | payer MEDICAID, OTHER ==
[~2021-07-08] VITALS: Ht 195.6 cm; Wt 136.1 kg
[2021-07-08 18:30] VITALS: BP 121/67
[2021-07-08 19:14] LABS: Basophils # (auto) 0.1 10 ^3/uL (0-0.2); Basophils % (auto) 0.7 % (0.0-2.0); Eosinophils # (auto) 0.1 10 ^3/uL (0-0.8); Eosinophils % (auto) 1.2 % (0.0-7.0); Hematocrit 38.1 % (41.0-53.0); Hemoglobin 12.4 g/dL (13.5-17.5); Lymphocytes # (auto) 0.6 10 ^3/uL (0.4-5.4); Lymphocytes % (auto) 7.5 % (10.0-50.0); Mean Corpuscular Hemoglobin 28.1 pg (28.0-32.0); Mean Corpuscular Hgb Conc. 32.4 g/dL (32.0-36.0); Mean Corpuscular Volume 86.6 fL (80.0-100.0); Monocytes # (auto) 0.5 10 ^3/uL (0-1.3); Monocytes % (auto) 6.7 % (0.0-12.0); Neutrophils # (auto) 6.7 10 ^3/uL (1.6-8.6); Neutrophils % (auto) 83.9 % (37.0-80.0); Nucleated Red Blood Cells % 0.2 %; Red Cell Distribution Width 15.9 % (11.8-14.3)
[2021-07-08] MEDS ORDERED: SODIUM CHLORIDE 0.9% 1,000 ML IV ONE (19:15)
[2021-07-08 19:26] LABS: Albumin 2.5 g/dL (3.4-5.0); Calcium 8.4 mg/dL (8.5-10.1); Potassium 4.5 mmol/L (3.5-5.1)
[2021-07-08 19:32] LABS: BUN/Creatinine Ratio 19.2; Bilirubin, Total 0.4 mg/dL (0.2-1.0); Total Protein 7.3 g/dL (6.4-8.2)
[2021-07-08 21:03] LABS: Blood Alcohol < 3.0 mg/dL (0-5)
== END 2021-07-08 23:35 | disposition left against medical advice (07) ==
LOC: ER 18:17 → EDUNIT# 18:17 → EDBD 18:17 → ER 23:35
DX: S71.101A Unspecified open wound, right thigh, initial encounter (principal); R44.3 Hallucinations, unspecified; F15.10 Other stimulant abuse, uncomplicated; Z91.19 Patient's noncompliance with other medical treatment and regimen; F12.10 Cannabis abuse, uncomplicated; Z59.00 Homelessness unspecified; Z53.29 Procedure and treatment not carried out because of patient's decision for other reasons; X58.XXXA Exposure to other specified factors, initial encounter; Y93.89 Activity, other specified; Y92.89 Other specified places as the place of occurrence of the external cause; Y99.8 Other external cause status
CPT/HCPCS: 36415; 80053; 80320; 84484; 85025; 93005